=== PATIENT | female | born 1935 | race Caucasian/White ===

== ENCOUNTER 2021-01-20 20:01 | Observation (INO) | payer MEDICARE, OTHER ==
[~2021-01-20] VITALS: Ht 154.9 cm; Wt 58.0 kg
[~2021-01-20 20:01] MED LIST: CALTRATE 600 +1 EAC1 PO; CHILDREN'S ASPI81 M1 PO; COZAAR25 MG PO; D3 DOTS2000 UNIT PO; DICYCLOMINE HCL20 MG PO; HYDROCODON-ACE1 EA10 PO; LEVOXYL88 MCG PO; MULTI-VITAMIN-1 EACH PO; OMEPRAZOLE20 MG; PEPCID20 MG PO; TYLENOL EXTRA500 MG PO
[2021-01-20] MEDS ORDERED: HYDROCHLOROTHIA25 MG PO (20:23)
[2021-01-20] MEDS ORDERED: ALENDRONATE SOD70 MG PO (20:25)
[2021-01-20] MEDS ORDERED: LOSARTAN POTASS50 MG PO (20:25)
--- NOTE | 2021-01-20 23:45 | NUR ---
pt ARRIVED TO THE FLOOR VIA ED STRETCHER, SBA TO HOSPITAL BED. VSS, TELE #[address], pt DENIES DIZZINESS. IV FLUIDS HUNG AND INFUSING PER MD ORDERS, SITE WNL. DAUGHTER IN ROOM. pt ORIENTED TO ROOM, CALL LIGHT IN REACH. DENIES NEED TO VOID, REPORTS SHE RECENTLY VOIDED IN ED. ASSESSMENT COMPLETE, A/OX4. NO FURTHER NEEDS AT THIS TIME, CALL LIGHT IN REACH.
--- NOTE | 2021-01-21 00:49 | NUR ---
pt UP SBA TO VOID, HR UP TO 120'S PER JULISA TRINH, RETURNED BELOW 100 AFTER APPROX 3 MINUTES. NOW SUSTAINING IN 90'S, NSR. pt DENIES SOB OR CHEST PAIN. NO DISTRESS NOTED. pt RESTING IN BED, DAUGHTER JAMAR ALSO IN ROOM. CALL LIGHT IN REACH.
--- NOTE | 2021-01-21 03:00 | NUR ---
pt RESTING IN BED WITH EYES CLOSED, RR EVEN AND UNLABORED. NO DISTRESS NOTED, TELE#[address] NSR, HR WNL. CALL LIGHT IN REACH.
--- NOTE | 2021-01-21 04:15 | NUR ---
pt UP TO VOID SBA TO BATHROOM, SINUS TACH WITH HR UP TO 115 WITH MOVEMENT, RETURNED TO BASELINE ONCE pt WAS BACK IN BED. NSR NOW, HR 90'S. ASSESSMENT COMPLETE, VSS. NO NEW CHANGES OR CONCERNS. CALL LIGHT IN REACH.
--- NOTE | 2021-01-21 05:22 | NUR ---
scheduled thyroid med given, see emar. no further needs. call light in reach.
--- NOTE | 2021-01-21 07:05 | NUR ---
Report received from Claudia EGAN. Pt ambulates to BR with SBA, steady gait. Breakfast ordered. IVF infusing WNL. Pt has no further needs.
--- NOTE | 2021-01-21 07:48 | NUR ---
Call light answered, new bag IVF hung. Assessment complete, pt alert and oriented with no needs. Pt eating breakfast sitting up in bed. Call light in reach.
--- NOTE | 2021-01-21 09:52 | NUR ---
IVF infusing WNL. Discussed discharge order with pt who is agreeable. No other needs at this time.
--- NOTE | 2021-01-21 11:35 | NUR ---
PT DISCHARGED VIA WHEELCHAIR WITH BELONGINGS IN HAND. VITALS STABLE. DISCHARGE TEACHING DONE, PT VERBALIZES UNDERSTANDING AND HAS NO CONCERNS. SALINE LOCK REMOVED, CATH INTACT WNL. PT DAUGHTER PRESENT TO DRIVE PT HOME.
--- NOTE | 2021-01-21 13:01 | EKG ---
[facility] [address] [place], [place] [address] Signed Normal sinus rhythm Normal ECG No previous ECGs available Confirmed by MARVA JOSEPH DO ([id number]) on 01/21/2021 1:01:24 PM Electronically Signed By: MARVA JOSEPH DO 01/21/21 1301 PATIENT NAME: OSIRIS DAS PRINCESS Electrocardiogram DATE OF : 33 PHYSICIAN: MARVA JOSEPH DO REPORT #: [id number] REPORT IS CONFIDENTIAL AND NOT TO BE RELEASED WITHOUT AUTHORIZATION
== END 2021-01-21 11:30 | disposition home or self-care (01) ==
LOC: ED 20:01 → MS 20:03
PROVIDERS: ADMIT Student in an Organized Health Care Education/Training Program; ATTEND Student in an Organized Health Care Education/Training Program
DX: E87.1 Hypo-osmolality and hyponatremia (principal); I95.89 Other hypotension; I10 Essential (primary) hypertension; E03.9 Hypothyroidism, unspecified; Z20.822 Contact with and (suspected) exposure to COVID-19
CPT/HCPCS: 36415; 71045; 80048; 80053; 81001; 83735; 84484; 85025; 87040; 93005; 93010; 96374; 99285-25; C9803; G0378; J3475; J7121; U0003

== ENCOUNTER 2021-02-16 10:01 | Emergency (ER) | payer MEDICARE, OTHER ==
[~2021-02-16] VITALS: Ht 154.9 cm; Wt 58.0 kg
[~2021-02-16 10:01] MED LIST changes: +ALENDRONATE SOD70 MG PO; +HYDROCHLOROTHIA25 MG PO; +LOSARTAN POTASS50 MG PO
--- OUTSIDE RECORDS SUMMARY | 2021-02-16 10:10 | XMS ---
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 Pearl has no Care Guidelines for this patient. [place] VISIT COUNT (12 MO.) [address] [facility] [place] [facility] TOTAL 2 NOTE: Visits indicate total known visits. [place]/[facility] VISIT TRACKING (12 MO.) 02/16/2021 10:[address] [facility] [place] TYPE: Emergency COMPLAINT: - WEAKNESS, DIZZINESS 01/20/2021 20:02 [facility] [place] TYPE: Emergency COMPLAINT: - LOC, LOW BLOOD PRESSURE INPATIENT VISIT TRACKING (12 MO.) 01/20/2021 20:03 [facility] [place] TYPE: Observation COMPLAINT: - TRANSIENT HYPOTENSION AND HYPONATREMIA DIAGNOSES: - Other hypotension - Hypo-osmolality and hyponatremia - Hypothyroidism, unspecified - Essential (primary) hypertension [email or web address]
[2021-02-16] MEDS ORDERED: HYDROCHLOROTHIA25 MG PO (10:26)
--- NOTE | 2021-02-16 14:08 | EKG ---
[facility] [address] [place], [place] [address] Signed Normal sinus rhythm Normal ECG When compared with ECG of 20-JAN-2021 21:07, No significant change was found Confirmed by MARVA JOSEPH DO ([id number]) on 02/16/2021 2:07:44 PM Electronically Signed By: MARVA JOSEPH DO 02/16/21 1408 PATIENT NAME: KANDYKenzieOSIRIS PRINCESS Electrocardiogram DATE OF : 33 PHYSICIAN: MARVA JOSEPH DO REPORT #: [id number] REPORT IS CONFIDENTIAL AND NOT TO BE RELEASED WITHOUT AUTHORIZATION
== END 2021-02-16 16:09 | disposition home or self-care (01) ==
LOC: ED 10:01
DX: R42 Dizziness and giddiness (principal); I10 Essential (primary) hypertension; E03.9 Hypothyroidism, unspecified; Z88.5 Allergy status to narcotic agent; Z88.7 Allergy status to serum and vaccine; Z79.899 Other long term (current) drug therapy
CPT/HCPCS: 70450; 80053; 81001; 84484; 85025; 93005; 93010; 99284-25; J7040

== ENCOUNTER 2023-12-22 22:59 | Emergency (ER) | payer MEDICARE, OTHER ==
[~2023-12-22] VITALS: Ht 154.9 cm; Wt 59.8 kg
[2023-12-22 23:11] LABS: BASOPHILS 0.5 % (0-2); EOSINOPHILS 2.3 % (0-6); HEMATOCRIT 33.1 % (35.0-50.0); LYMPHOCYTES 34.1 % (24-44); MCH 30.7 (27-36); MCHC 33.2 g/dl (30-36); MCV 92.6 fl (81-99); NEUTROPHILS 51.1 % (39-80); PLATELET COUNT 282 K/uL (140-440); RBC 3.57 M/ul (4.3-5.7); RDW 13.5 (10.5-15.0)
[2023-12-22] MEDS ORDERED: fentaNYL citrate 100 MCG/2 ML VIAL IV PRN (23:15)
[2023-12-22 23:22] LABS: INR 0.96 (0.80-1.30)
[2023-12-22 23:26] LABS: ALBUMIN 2.8 g/dL (3.4-5.0); ALBUMIN/GLOBULIN RATIO 0.76 (1.1-2.4); BILIRUBIN, TOTAL 0.2 ng/dL (0.2-1.0); BUN/CREATININE RATIO 31.89 (6.0-28.6); CALCIUM 8.8 mg/dL (8.5-10.1); CREATININE, SERUM 1.16 mg/dL (0.55-1.02); PROTEIN, TOTAL 6.5 g/dL (6.4-8.2)
[2023-12-23 00:43] VITALS: BP 138/54
--- NOTE | 2023-12-23 22:40 | EKG ---
[facility] [address] [facility] [place] [address] Signed Sinus rhythm with premature supraventricular complexes Cannot rule out Anterior infarct , age undetermined Abnormal ECG When compared with ECG of 16-FEB-2021 10:33, premature supraventricular complexes are now present Confirmed by Nas Padgett MD () on 12/23/2023 10:40:34 PM Electronically Signed By: NAS PADGETT MD 12/23/23 2240 PATIENT NAME: OSIRIS DAS PRINCESS Electrocardiogram DATE OF : 33 PHYSICIAN: NAS PADGETT MD REPORT #: [id number] REPORT IS CONFIDENTIAL AND NOT TO BE RELEASED WITHOUT AUTHORIZATION
== END 2023-12-23 00:44 | disposition short-term general hospital (02) ==
LOC: ED 22:59
PROVIDERS: Family Medicine
DX: S72.141A Displaced intertrochanteric fracture of right femur, initial encounter for closed fracture (principal); W22.8XXA Striking against or struck by other objects, initial encounter; I10 Essential (primary) hypertension; E03.9 Hypothyroidism, unspecified; Z79.899 Other long term (current) drug therapy; Z88.5 Allergy status to narcotic agent
CPT/HCPCS: 36415; 73502; 80053; 85025; 85610; 93005; 93010; 96374; 99284-25; J3010

== ENCOUNTER 2024-02-20 08:51 | Inpatient (IN) | payer MEDICARE, OTHER ==
[~2024-02-20] VITALS: Ht 154.9 cm; Wt 56.0 kg
[2024-02-20] VITALS (7 sets, daily range): BP systolic 106–120; BP diastolic 39–50
[2024-02-20] MEDS ORDERED: ELIQUIS2.5 MG PO (09:20)
[2024-02-20] MEDS ORDERED: AMIODARONE HCL100 MG PO (09:21)
[2024-02-20] MEDS ORDERED: PREGABALIN25 MG PO (09:21)
[2024-02-20] MEDS ORDERED: POTASSIUM CHLO20 ME2 PO (09:21)
[2024-02-20] MEDS ORDERED: TORSEMIDE10 MG PO (09:21)
[2024-02-20] MEDS ORDERED: CYCLOBENZAPRINE5 MG PO (09:21)
[2024-02-20] MEDS ORDERED: SODIUM CHLORIDE 0.9% 1,000 ML IV PRN (09:30)
[2024-02-20 10:43] LABS: BASOPHILS 0.4 % (0-2); EOSINOPHILS 0.1 % (0-6); HEMATOCRIT 13.4 % (35.0-50.0); LYMPHOCYTES 6.5 % (24-44); MCHC 31.9 g/dl (30-36); MCV 106.6 fl (81-99); MONOCYTES 9.5 % (0-12); NEUTROPHILS 83.5 % (39-80); PLATELET COUNT 427 K/uL (140-440); RBC 1.26 M/ul (4.3-5.7); RDW 23.7 (10.5-15.0)
[2024-02-20 10:53] LABS: PARTIAL THROMBOPLASTIN TIME 25.4 Sec (22.9-41.3)
[2024-02-20 10:54] LABS: HEMOGLOBIN 4.3 g/dL (12.0-18.0); INR 1.08 (0.80-1.30); PROTIME 13.3 Sec (11.2-14.2)
[2024-02-20 11:03] LABS: ALBUMIN 2.2 g/dL (3.4-5.0); ALBUMIN/GLOBULIN RATIO 0.76 (1.1-2.4); BILIRUBIN, TOTAL 0.2 ng/dL (0.2-1.0); BUN/CREATININE RATIO 39.47 (6.0-28.6); CALCIUM 7.7 mg/dL (8.5-10.1); CREATININE, SERUM 1.52 mg/dL (0.55-1.02); PROTEIN, TOTAL 5.1 g/dL (6.4-8.2)
[2024-02-20 11:18] LABS: ABO A; ANTIBODY SCREEN NEGATIVE; RH POSITIVE
[2024-02-20 12:06] LABS: IS CROSSMATCH COMPATIBLE
[2024-02-20] MEDS ORDERED: PROCHLORPERAZINE EDISYLATE 10 MG/2 ML VIAL IV PRN (13:00)
[2024-02-20] MEDS ORDERED: ACETAMINOPHEN 325 MG TAB PO PRN (13:00)
[2024-02-20] MEDS ORDERED: ondansetron HCL 4 MG/2 ML VIAL IV PRN (13:00)
[2024-02-20] MEDS ORDERED: FEROSUL325 MG PO (15:11)
[2024-02-20] MEDS ORDERED: DULOXETINE HCL30 MG PO (15:12)
[2024-02-20] MEDS ORDERED: IRBESARTAN150 MG PO (15:12)
[2024-02-20] MEDS ORDERED: AMLODIPINE BESYL5 MG PO (15:13)
[2024-02-20] MEDS ORDERED: LEVOTHYROXINE100 MCG PO (15:13)
[2024-02-20 16:36] LABS: IS CROSSMATCH COMPATIBLE
[2024-02-20] MEDS ORDERED: MIRALAX119 GM PO (17:06)
[2024-02-20] MEDS ORDERED: OCUVITE LUTEIN1 EAC1 PO (17:06)
[2024-02-20] MEDS ORDERED: SENNA8.6 MG PO (17:07)
--- NOTE | 2024-02-20 17:08 | NUR ---
MED REC COMPLETE
--- NOTE | 2024-02-20 17:13 | NUR ---
Pt arrived to the room at 1326 hours, transferred here from ED4 by this RN after receiving report from JULISA Linda at 1309 hours. Pt's personal belongings in ED4 were gathered by this RN and placed in a green [facility] patient belongings bag labeled with her patient sticker. Pt transferred to room 122 via stretcher, sheet transferred by 3 staff from stretcher to bed. One unit of blood was infusing upon transfer to med/surg. This completed during admission assessment and Post infusion VS obtained. Two RN Skin assessment performed by this RN and Dyana Cronin RN while pt up to [facility] using FWW and 2PA. Pt c/o lightheadedness upon standing that cleared up, but she also c/o muscle spasms in her back, which caused her to flinch as though she was losing her balance. Pt voided in the commode. Katelynn noted to the coccyx area that the pt states had been placed this last Thursday. This was removed. Noted a reddened, non-blanchable area on both sides of the superior gluteal cleft. The reddened area on the left side had a small "barry" in the skin, not bleeding, but more red than the surrounding skin, almost like a small tear. Below these reddened areas is another quarter sized reddened area on the right side, non-blanchable. Waffle overlay placed on the pt's mattress before she returned to bed. SCD's placed on bilateral lower extremities, pt has 2+ pitting edema to BLE, right foot greater than left. She states since she had hip surgery, this has gotten worse and has been harder to get off. Pt's daughter has been in with her in the room. Pt reports poor appetite. Pt also reports that she had been placed on eliquis r/t a diagnosis of AFIB in [place] 5 weeks ago but then was told to stop taking it. She states she has not been taking it but Dr. Carbajal sent in a new prescription for it recently that she has yet to pickle pumper. Pt states that she normally gets around at home using her walker, and that she sleeps in a recliner so it's easier to get up and down. She advises that she has severely increased pain in her lower back when moving from a supine to sitting position and sitting to standing position as well as all in reverse. Pt states she has had a poor appetite as of late. Pt's daughter plans to have her home medications brought in for the pharmacist to review. Pt was oriented to the room and the use of the call light.
--- NOTE | 2024-02-20 19:48 | NUR ---
RECEIVED REPORT FROM DAY SHIFT RN. PATIENT IS RESTING IN BED. BLOOD TRANSFUSION COMPLETED. PATIENTS VITALS TAKEN AND RECORDED. PATIENT DENIES ANY S/SX OF TRANSFUSION REACTION. PATIENT DENIES ANY FURTHER NEEDS. CALL LIGHT IN REACH. DAUGHTER AT BEDSIDE. UPDATE PATIENT AND PATIENTS DAUGHTER ON PLAN OF CARE.
--- NOTE | 2024-02-20 20:41 | NUR ---
PATIENTS 3RD UNIT PRBC STARTED AT APPROX 2014. PATIENT IS RESTING IN BED AND VISITING WITH DAUGHTER. PATIENTS VITALS TAKEN AT APPROX 2029. PATIENT DENIES ANY S/SX OF BLOOD TRANSFUISON REACTION. PATIENT ASSESMENT COMPLETED. PATIENT DENIES ANY PAIN. PATIENT REPOSITIONED IN BED. PATIENT HAS SCDS IN USE. PATIENT PROVIDED WARM BLANKET AND FRESH ICE WATER. DISCUSSED PLAN OF CARE WITH DAUGHTER AND PATIENT AND ALL QUESTIONS ANSWERED. PATIENT DENIES ANY FURTHER NEEDS. DAUGHTER HAS LEFT FOR THE EVENING AND TOOK PATIENTS HEARING AIDS. CALL LIGHT IN REACH. BLOOD TRANSFUSING PER ORDER.
--- NOTE | 2024-02-20 22:00 | NUR ---
PATIENT IS RESTING IN BED WITH EYES CLOSED, RR 15. CALL LIGHT IN REACH. BLOOD INFUSING PER ORDER.
--- NOTE | 2024-02-20 23:30 | NUR ---
3RD UNIT PRBC COMPLETED @ APPROX 2312. PATIENTS VITALS TAKEN AND RECORDED. PATIENT DENIES ANY S/SX OF TRANSFUSION REACTION. PATIENT DENIES ANY NEEDS. CALL LIGHT IN REACH.
--- NOTE | 2024-02-20 23:57 | NUR ---
PATIENT ASSISTED TO THE BSC A 2PA W/FWW. PATIENT ABLE TO VOID. PATIENT IS BACK IN BED RESTING. PATIENT POSITIONED IN HER RIGHT SIDE. PATIENTS SCDS IN USE. NO FURTHER NEEDS NOTED. CALL LIGHT IN REACH.
[2024-02-21] VITALS (7 sets, daily range): BP systolic 103–138; BP diastolic 40–54
--- NOTE | 2024-02-21 00:08 | NUR ---
PATIENT IS RESTING IN BED ON RIGHT SIDE WITH EYES CLOSED, RR 16. CALL LIGHT IN REACH.
[2024-02-21 02:08] LABS: EOSINOPHILS 0.4 % (0-6); HEMOGLOBIN 9.6 g/dL (12.0-18.0)
[2024-02-21 02:11] LABS: BASOPHILS 0.6 % (0-2); HEMATOCRIT 28.8 % (35.0-50.0); LYMPHOCYTES 10.7 % (24-44); MCH 30.9 (27-36); MCHC 33.3 g/dl (30-36); MCV 92.7 fl (81-99); MONOCYTES 11.2 % (0-12); NEUTROPHILS 77.1 % (39-80); PLATELET COUNT 296 K/uL (140-440); RBC 3.11 M/ul (4.3-5.7); RDW 17.7 (10.5-15.0)
--- NOTE | 2024-02-21 02:14 | NUR ---
PATIENTS LABS DRAWN PER MD REQUEST. PATIENTS LAB DRAWN AND SENT TO LAB. PATIENTS VITALS TAKEN AND RECORDED. INTAKE AND OUTPUT RECORDED. PATIENT HAD REQUESTED PUREWICK BE REMOVED EARLIER. PATIENT REQUESTED PUREWICL BE REPLACED. PUREWICK IN PLACE. PATIENT DENIES ANY FURTEHR NEEDS. CALL LIGHT IN REACH.
[2024-02-21 03:04] LABS: ALBUMIN 1.6 g/dL (3.4-5.0); ALBUMIN/GLOBULIN RATIO 0.59 (1.1-2.4); ANION GAP 10.5 (7-21); BILIRUBIN, TOTAL 0.5 ng/dL (0.2-1.0); BUN/CREATININE RATIO 35.64 (6.0-28.6); CALCIUM 7.1 mg/dL (8.5-10.1); CREATININE, SERUM 1.01 mg/dL (0.55-1.02); MAGNESIUM 1.9 mg/dL (1.8-2.4); PHOSPHORUS, INORGANIC 2.5 mg/dL (2.5-4.9); POTASSIUM 3.5 mmol/L (3.5-5.1); PROTEIN, TOTAL 4.3 g/dL (6.4-8.2)
--- NOTE | 2024-02-21 04:12 | NUR ---
PATIENT IS RESTING IN BED WITH EYES CLOSED, RR 16. CALL LIGHT IN REACH.
--- NOTE | 2024-02-21 06:31 | NUR ---
PATIENT ASSISTED TO [facility] A 2PA W/FWW. PATIENT ABLE TO VOID. PATIENT IS NOW IN RECLINER RESTING. PATIENT REPORTS 5/10 BACK PAIN, PRN PAIN MEDICATION PER ORDER. PATIENTS VITALS TAKEN AND RECORDED. INTAKE AND OUTPUT RECORDED. PATIENT DENIES ANY FURTHER NEEDS. CALL LIGHT IN REACH.
[2024-02-21 07:20] LABS: ABO A; RH POSITIVE
--- NOTE | 2024-02-21 09:04 | NUR ---
PT SITTING UP IN CHAIR, STATES HAVING PAIN IN BACK, PAIN CHRONIC FROM PREVIOUS INJURY. NEXT PAIN MEDICATION AVAILABLE AFTER 1100. DISCUSSED I WOULD SPEAK TO DR PADGETT REGARDING PAIN, PT VERBALIZED AGREEMENT. PT DENIES FURTHER NEEDS AT THIS TIME. CALL LIGHT IN REACH AND DAUGHTER IN ROOM.
[2024-02-21] MEDS ORDERED: PHARMACY RENAL DOSE ADJUSTMENT 1 DOSE MISC PO SCH (12:00)
[2024-02-21] MEDS ORDERED: OXYCODONE HCL5 MG PO (12:14)
--- NOTE | 2024-02-21 12:43 | NUR ---
PT AMBULATED STANDBY ASSIST WITH FWW TO THE BATHROOM AND BACK TO RECLINER. PT HAD FORMED, BROWN STOOL. PRINTED PRESCRIPTION GIVEN TO DAUGHTER TO BRING TO [facility]. PT TO FINISH LUNCH, THEN WILL GO OVER DISCHARGE INSTRUCTIONS. PT DENIES FURTHER NEEDS AT THIS TIME. CALL LIGHT IN REACH AND FAMILY AT BEDSIDE.
[2024-02-21 13:20] LABS: IRON BINDING CAPACITY TOTAL 253 ug/dL (240-450); IRON,SERUM OR PLASMA 36 ug/dL (28-170); TRANSFERRIN SATURATION 14 %sat (20-50)
== END 2024-02-21 13:40 | disposition home or self-care (01) | DRG 812 ==
LOC: ED 08:51 → MS 08:52
PROVIDERS: Emergency Medicine; ADMIT Family Medicine; ATTEND Family Medicine
PROC: 30233N1 Transfusion of Nonautologous Red Blood Cells into Peripheral Vein, Percutaneous Approach (ICD-10-PCS; principal; 2024-02-20)
DX: D50.9 Iron deficiency anemia, unspecified (principal); N17.9 Acute kidney failure, unspecified; D63.8 Anemia in other chronic diseases classified elsewhere; I48.91 Unspecified atrial fibrillation; Z66 Do not resuscitate; Z88.7 Allergy status to serum and vaccine; Z88.5 Allergy status to narcotic agent; Z79.01 Long term (current) use of anticoagulants; Z79.83 Long term (current) use of bisphosphonates; Z79.890 Hormone replacement therapy
CPT/HCPCS: 36415; 36430; 80053; 83550; 83615; 83735; 84100; 84484; 85025; 85045; 85060; 85610; 85730; 86850; 86900; 86901; 86922; 97161; 99285-25; A9270; J7030; P9016

== ENCOUNTER 2024-08-21 10:26 | Inpatient (IN) | payer MEDICARE, OTHER ==
[~2024-08-21] VITALS: Ht 154.9 cm; Wt 53.1 kg
[~2024-08-21 10:26] MED LIST changes: +AMIODARONE HCL100 MG PO; +AMLODIPINE BESYL5 MG PO; +CYCLOBENZAPRINE5 MG PO; +CYMBALTA20 MG PO; +ELIQUIS2.5 MG PO; +FEROSUL325 MG PO; +IRBESARTAN150 MG PO; +LEVOTHYROXINE100 MCG PO; +MIRALAX119 GM PO; +OCUVITE LUTEIN1 EAC1 PO; +OXYCODONE HCL5 MG PO; +POTASSIUM CHLO20 ME2 PO; +PREGABALIN25 MG PO; +SENNA8.6 MG PO; +TORSEMIDE10 MG PO
[2024-08-21 10:50] LABS: BASOPHILS 0.5 % (0-2); HEMATOCRIT 24.6 % (35.0-50.0); HEMOGLOBIN 7.9 g/dL (12.0-18.0); LYMPHOCYTES 11.8 % (24-44); MCH 29.8 (27-36); MCHC 32.2 g/dl (30-36); MCV 92.5 fl (81-99); MONOCYTES 8.7 % (0-12); PLATELET COUNT 457 K/uL (140-440); RBC 2.66 M/ul (4.3-5.7); RDW 16.2 (10.5-15.0)
[2024-08-21 11:03] LABS: ALBUMIN 2.5 g/dL (3.4-5.0); ALBUMIN/GLOBULIN RATIO 0.66 (1.1-2.4); ALCOHOL, MEDICAL <3 ng/dL (<3); ALKALINE PHOSPHATASE 174 U/L (46-116); ALT (SGPT) 12 U/L (14-59); ANION GAP 12.9 (7-21); AST (SGOT) 13 U/L (15-37); BILIRUBIN, TOTAL 0.2 ng/dL (0.2-1.0); BUN/CREATININE RATIO 55.44 (6.0-28.6); CALCIUM 9.5 mg/dL (8.5-10.1); CARBON DIOXIDE 27 mmol/L (21-32); CHLORIDE 103 mmol/L (98-107); CREATININE, SERUM 1.01 mg/dL (0.55-1.02); GLOMERULAR FILTRATION RATE,EST 53 mL/min (>60); POTASSIUM 3.9 mmol/L (3.5-5.1); PROTEIN, TOTAL 6.3 g/dL (6.4-8.2); UREA NITROGEN 56 mg/dL (7-18)
[2024-08-21 11:22] LABS: BILIRUBIN, URINE NEGATIVE (negative); BLOOD/HGB, URINE NEGATIVE (Negative); KETONE, URINE TRACE (Negative); LEUK ESTERASE, URINE NEGATIVE (negative); NITRITE, URINE NEGATIVE (negative); PH, URINE 5.5 (5-7)
[2024-08-21 11:37] LABS: AMPHETAMINES, URINE NEGATIVE (NEGATIVE); BARBITURATES, URINE NEGATIVE (NEGATIVE); BENZODIAZEPINE, URINE NEGATIVE (NEGATIVE); BUPRENORPHINE, URINE NEGATIVE (NEGATIVE); CANNABINOID, URINE NEGATIVE (NEGATIVE); COCAINE, URINE NEGATIVE (NEGATIVE); ECSTASY, URINE NEGATIVE (NEGATIVE); FENTANYL, URINE NEGATIVE (NEGATIVE); METHADONE, URINE NEGATIVE (NEGATIVE); OPIATES, URINE NEGATIVE (NEGATIVE); OXYCODONE, URINE NEGATIVE (NEGATIVE); PHENCYCLIDINE, URINE NEGATIVE (NEGATIVE)
[2024-08-21] MEDS ORDERED: CALCITONIN-SAL3.7 ML NAS (12:20)
[2024-08-21] MEDS ORDERED: FUROSEMIDE20 MG PO (12:20)
[2024-08-21] MEDS ORDERED: PANTOPRAZOLE SO40 MG PO (12:21)
[2024-08-21] MEDS ORDERED: CEFTRIAXONE/SODIUM CHLORIDE 1 GM/100 ML PIGGYBACK IV ONE (12:30)
[2024-08-21] MEDS ORDERED: SODIUM CHLORIDE 0.9% 1,000 ML IV ONE (12:30)
[2024-08-21 13:00] LABS: TSH, 3RD GENERATION 0.442 uIU/mL (0.358-3.740)
[2024-08-21] MEDS ORDERED: LACTATED RINGER'S 1,000 ML IV SCH (14:15)
[2024-08-21] MEDS ORDERED: ondansetron HCL 4 MG/2 ML VIAL IV PRN (14:15)
[2024-08-21] MEDS ORDERED: ACETAMINOPHEN 325 MG TAB PO PRN (14:15)
[2024-08-21] MEDS ORDERED: PANTOPRAZOLE SODIUM 40 MG/10 ML VIAL IV SCH (14:15)
[2024-08-21 14:46] VITALS: BP 135/73
[2024-08-21 15:05] LABS: ABO A; RH POSITIVE
[2024-08-21 15:06] LABS: ANTIBODY SCREEN NEGATIVE; IS CROSSMATCH COMPATIBLE
--- NOTE | 2024-08-21 15:30 | NUR ---
PATIENT IS IN THE ROOM WITH HER DAUGHTER SITTING ON THE COUCH AT BEDSIDE. ADMISSION COMPLETE. ASSESSMENT COMPLETE AND DOCUMENTED IN THE CHART. PATIENT IS ALERT AND ORIENTED TO SELF ONLY. PATIENT IS FORGETFUL AND CONFUSED. PATIENT STATES THIS IS NOT HER NORMAL. MURMUR HEARD ON CARDIAC AUSCULTATION. 1+ PITTING EDEMA NOTED IN BLE. RADIAL PULSES ARE STRONG BILATERALLY. PATIENT IS ON ROOM AIR. CLEAR LUNGS IN THE RIGHT LUNG NORTON WELL THE SILVINA. L LOWER LUNG FIELD IS DIMINISHED. PATIENT IS ON A CLEAR LIQUID DIET. BOWEL TONES ARE ACTIVE IN ALL FOUR QUADRANTS. LAST BM WAS 08/18/24. PATIENT WITH EPISODES OF INCONTINENCE. PUREWICK IN PLACE. COCCYX WITH BLANCHABLE REDNESS AND SCATTERED SCABS. SCATTERED BRUISING NOTED WELL. PATIENT WITH NO COMPLAINTS OF PAIN. SENSATION INTACT WITH NO NUMBNESS OR TINGLING. IV IN THE RIGHT FOREARM FLUSHED WITH 10 ML NORMAL SALINE AND HAS MAINTENANCE FLUIDS INFUSING AT THIS TIME. IV DRESSING IS CLEAN, DRY, AND INTACT. PATIENT STATED NO FURTHER NEEDS AT THIS TIME. CALL LIGHT AND PERSONAL BELONGINGS ARE WITHIN REACH.
[2024-08-21] MEDS ORDERED: LABETALOL HCL 20 MG/4 ML VIAL IV PRN (16:00)
--- NOTE | 2024-08-21 16:15 | NUR ---
RN REMAINS AT BEDSIDE FOR FIRST 15 MINUTES OF BLOOD TRANSFUSION. PATIENT IS ALERT AND CALM BUT REMAINS CONFUSED. VITAL SIGNS TAKEN PRIOR. PATIENT DAUGHTER IS NOT IN THE ROOM AT THIS TIME.
--- NOTE | 2024-08-21 16:29 | NUR ---
15 MINUTE VITAL SIGNS COMPLETE. PATIENT IS LYING ON THEIR BACK WITH EYES OPEN AND RESPIRATIONS ARE EVEN AND UNLABORED. PATIENT DAUGTER IS SITTING ON THE COUCH IN THE ROOM AT THIS TIME. PUREWICK IN PLACE. PATIENT GIVEN FRESH CUP OF ICE WATER. PATIENT STATED NO FURTHER NEEDS AT THIS TIME. CALL LIGHT AND PERSONAL BELONGINGS ARE WITHIN REACH.
--- NOTE | 2024-08-21 17:02 | NUR ---
PATIENT IS SITTING UPRIGHT IN BED. PATIENT DAUGHTER IS LEAVING AT THIS TIME. BLOOD INFUSING AT 175 ML/HR. PATIENT STATED NO FURTHER NEEDS AT THIS TIME. CALL LIGHT AND PERSONAL BELONGINGS ARE WITHIN REACH.
--- NOTE | 2024-08-21 17:24 | NUR ---
PATIENT IS SITTING UPRIGHT IN BED AND WATCHING TV. PATIENT REMAINS CONFUSED, RN REORIENTED PATIENT AT THIS TIME. PATIENT RE-EDUCATED ON THE CALL LIGHT AND PRESS THE NURSE BUTTON IF SHED NEEDS ANYTHING. PATIENT EXPRESSED UNDERSTANDING. BLOOD TRANSFUSION RATE INCREASED TO 250 ML/HR. PATIENT IS TOLERATING WELL. PATIENT PUREWICK IN PLACE. PATIENT STATED NO FURTHER NEEDS AT THIS TIME. CALL LIGHT AND PERSONAL BELONGINGS ARE WITHIN REACH.
[2024-08-21 18:34] VITALS: BP 121/53
[2024-08-21 18:36] VITALS: BP 121/53
--- NOTE | 2024-08-21 18:40 | NUR ---
WAFFLE BED HAS BEEN PLACED FOR PATIENT TO HELP WITH SKIN BREAK DOWN. WAFFLE SEAT HAS BEEN ALSO PLACED ON RECLINER. NO REQUEST FROM PATIENT AT THIS TIME. CALL LIGHT HAS BEEN PLACED WITHIN REACH.
[2024-08-21 18:41] VITALS: BP 121/53
--- NOTE | 2024-08-21 18:44 | NUR ---
PATIENT IS LYING IN BED AFTER GETTING A WAFFLE MATTRESS OVERLAY IN PLACE. BLOOD TRANSFUSION COMPLETE. VITAL SIGNS TAKEN. JULISA LOPEZ CLEARED PUMP OF IV INTAKE FLUIDS. RN UNABLE TO TAKE WOUND CARE PICTURES DUE TO PATIENT INABILITY TO CONSENT. PATIENT STATED NO FURTHER NEEDS AT THIS TIME. CALL LIGHT AND PERSONAL BELONGINGS ARE WITHIN REACH.
--- NOTE | 2024-08-21 19:30 | NUR ---
Pt awake, oriented to self only, reoriented, semireceptive. on room air. bed alrm on for safety, IVF and scds in place
[2024-08-21 20:06] VITALS: BP 139/60
[2024-08-21 20:17] VITALS: BP 139/60
--- NOTE | 2024-08-21 20:17 | NUR ---
Pt up to BSC with 2PA, heavy weight and uncoordinated movements noted. required multiple cues. voided and had a large hard formed green dark/silvery bm. area bettween buttocks notd to be red and peeling skin, Allevyn applied as a tx by wound care nurse. Back to bed, Clean attends and pure wick changed, tolerated fair, reassured, all cares explained, alert to self, place and date at thist kari. cooperative. On room air, lungs clear bilat, denies CP, abd alightly firm, dianne. scds in place, 1+ edema to ankles present. elevated. IVF infusing RW. no c/o pain, took small sips of fluid. Bed alrm for fall precautions in place
--- NOTE | 2024-08-21 20:36 | NUR ---
PT NOTED TO HAVE A PAINFUL, RED COCCYX. PT HAS A SLOUGHING SKIN, BLANCHABLE AND A SMALL AREA OF DENUDED SKIN SUPERIOR TO THE RECTUM. APPLY SKIN BARRIER CREAM AND COCCYX ALLEVYN. CHANGE POSITIONS FREQUENTLY AND MONITOR FOR INCREASED SKIN BREAKDOWN. CHANGE DRESSING EVERY 3 DAYS AND PRN.
[2024-08-21] MEDS ORDERED: MELATONIN 3 MG TAB PO PRN (21:00)
--- NOTE | 2024-08-21 22:56 | NUR ---
Charge nurse went to pts room and pt appeared to have word salad unable to make words out. When this RN and CRAFT RECRUITER went in there, pt was more alert and oriented to self, place and situation, able to state she had back pain, unable to state pain level, denies CP or SOB. medicated with Tylenol per back pain and repostitioned to R side. cooperative, on room air, pure wick in place, alrmds in place. Tolerated sips of fluids well. SCD's in place, waffle mattress overlay in place
[2024-08-22] VITALS (8 sets, daily range): BP systolic 122–148; BP diastolic 45–67
--- NOTE | 2024-08-22 01:50 | NUR ---
pT AWAKE, TURNED AND REPOSITIONED, TOLERATED WELL. PURE WICK IN PLACE. NO DRAINAGE AT THIS TIME, ATTENDS DRY. IVF INFUSING. TOOK SIPS OF FLUID. SCDS IN PLACE. ELEVATED. NORMAL SPEECH, AWARE OF SURROUNDINGS, ALL CARES EXPLAINED PRIOR TO. NO C/O PAIN.
--- NOTE | 2024-08-22 03:41 | CONS ---
[facility] [address] [place], [place] [address] Signed DATE OF CONSULTATION: 08/21/2024 CHIEF COMPLAINT: Change in mental status. HISTORY OF PRESENT ILLNESS: Ludy is an 88-year-old female, who had been living with her daughter until a few years ago. Earlier this year, she had fallen and broken her hip and required to be pinned. She is known to have chronic anemia. She has received some blood transfusions both inpatient and outpatient. She has been on iron therapy as well. 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 She seemed to do well with that. She then fell in June of this year and had a cranial fracture with a pneumocephalus. On a repeat CT scan that has resolved. This morning, her daughter had found her down on the floor with pillow. She helped her get back in the chair and Ludy actually ate her breakfast. But her daughter felt that her mental status had changed and wanted to bring her to the emergency room for evaluation. In January of this year, she was in the hospital for the same thing. She got 3 units of packed red blood cells. She had declined colonoscopy at that time. She has also just saw her primary care provider the day before [place]. That notes been reviewed as long as the note from the oncologist and her hvac sheet metal installer as well. In the emergency room, there were some markings in the base of the lung, so they gave her a dose of Rocephin. She is very private and likes to take care of herself and does not accept personal hygiene help from her daughters. The nurses had to cleanup brown stool. She is in the hospital now on the Medical Service and is going to receive 1 unit of packed red blood cells. Her daughter is with her. She keeps herself a limited care. PAST MEDICAL HISTORY: Osteopenia, cranial fracture with pneumocephalus in June 2024, hypertension, hypothyroidism, chronic anemia, paroxysmal atrial fibrillation. She has several thoracic and upper lumbar compression fractures. She has lower extremity edema. She fell earlier this year and has a pelvic fracture. She was treated for Hodgkin lymphoma starting about 2014 with chemo and radiation and did well with that. She is also hard of hearing. PAST SURGICAL HISTORY: Bilateral cataract surgery, cholecystectomy, repair of a prolapsed bladder. She had a right hip pinned in the last few weeks and she may have had a hysterectomy. SOCIAL HISTORY: She does not smoke or drink. She has one daughter named Diana at . She now sees Dr. Carbajal as Dr. Torres is retiring. She prefers the [email or web address]. She [facility] at [facility]. She has a four wheeled walker. Dr. Fragoso is her hvac sheet metal installer and Dr. Fransisco Murcia is her corporate communications manager. She keeps herself, has Electronically Signed By: LISSA LUU MD 08/22/24 0341 PATIENT NAME: LUDY DAS PRINCESS CONSULTATION DATE OF : 33 REPORT #: [id number] PHYSICIAN: LISSA LUU MD PCP: SANDI TORRES MD REPORT IS CONFIDENTIAL AND NOT TO BE RELEASED WITHOUT AUTHORIZATION [facility] [address] [place], [place] [address] Signed limited care. FAMILY HISTORY: None. REVIEW OF SYSTEMS: Her previous chart reviewed in that regard. ALLERGIES: Codeine, tetanus and diphtheria toxoid. MEDICATIONS: Vitamin D, calcium, potassium, pregabalin, iron sulfate, duloxetine, amlodipine, levothyroxine, polyethylene glycol, Senna, Lasix, calcitonin, and Protonix. PHYSICAL EXAMINATION: VITAL SIGNS: Her blood pressure is 124/56, heart rate is 99, respiratory rate 19, temperature is 98.1. She is 98% on room air. She is 5 feet 1 inch tall at 56 kg with a body mass index of 23. GENERAL: Ludy is an 88-year-old elderly female lying supine in her hospital bed. She does not appear to be in any acute distress. She is clearly hard of hearing. She is clearly qmbi-po-erwboqmhrn confused. She is not sure why she is here in the hospital. LUNGS: Clear to auscultation bilaterally. HEART: Tachycardic with a quiet murmur. ABDOMEN: Mildly distended but soft and nontender. LABORATORY DATA: Her white blood cell count is 8.9, hemoglobin 7.9, mean cell volume is 92, platelets 457. BUN 56, creatinine 1.01. Urinalysis negative. Thyroid function tests negative. Alkaline phosphatase a little high at 174. Troponin is negative. Albumin is a little low at 2.5. Alcohol was negative. Ammonia was negative. RADIOGRAPHIC STUDIES: A chest x-ray shows possible old right rib fractures and her compression fractures in the lower thoracic and upper lumbar spine. She has some markings along that left lower lobe of the lung. CT scan of the head shows that the pneumocephalus from June of this year is resolved. No other significant changes other than that from her age. ASSESSMENT AND PLAN: Ludy is an 88-year-old female, who has a long history of chronic anemia requiring iron tablets and intermittent blood transfusions. She has been very consistent declining upper and lower endoscopy including January of this year. She told me today she is not sure why she is in the hospital and she feels bad that her daughter has to be Electronically Signed By: LISSA LUU MD 08/22/24 0341 PATIENT NAME: LUDY DAS CONSULTATION DATE OF : 33 REPORT #: [id number] PHYSICIAN: LISSA LUU MD PCP: SANDI TORRES MD REPORT IS CONFIDENTIAL AND NOT TO BE RELEASED WITHOUT AUTHORIZATION [facility] [address] [place], [place] [address] Signed here with her. She makes herself a limited care. She did not seem particularly interested in upper and lower endoscopy once again. I explained to Ludy and her daughter is certainly reasonable to treat her conservatively with the ongoing Protonix and gave her a unit of blood and see how she does. I am always available if they want to do upper endoscopy. She is quite frail and doing a lower endoscopy would be a bit of a challenge. They have expressed understanding, agreed above plan. Lissa Luu MD ALB/MODL /[id number] cc: MD Jose De Jesus Roberts DO Copies: LISSA LUU MD, ARIAN DO ~ Electronically Signed By: LISSA LUU MD 08/22/24 0341 PATIENT NAME: LUDY DAS PRINCESS CONSULTATION DATE OF : 33 REPORT #: [id number] PHYSICIAN: LISSA LUU MD PCP: SANDI TORRES MD REPORT IS CONFIDENTIAL AND NOT TO BE RELEASED WITHOUT AUTHORIZATION
--- NOTE | 2024-08-22 03:57 | NUR ---
PATIENT HOLLERING OUT HELP. THIS RN INTO PATIENTS ROOM. PATIENT STATED "I THINK I HAVE TO PEE". PATIENT EDUCATED SHE HAS A PUREWICK. PATIENT STATED "OH I CANT DO THAT". PATIENT OFFERED TO GET UP AND GO TO THE BATHROOM. PATIENT STATED "I DONT HAVE TO PEE". PATIENT IS NOTED TO BE ONLY ORIENT TO SELF. PATIENT REPORTIENTED. PATIENT BLADDER SCANNED FOR 345. PATIENT AGAIN DENIES THE NEED TO VOID. NO FURTHER NEEDS. NOTED. CALL LIGHT IN REACH. IV INFUSING PER ORDER. BED ALARM ON FOR SAFETY.
--- NOTE | 2024-08-22 04:33 | NUR ---
eyes closed, no s/sx distress. turned earlier in bed, pure wick in place, on room air. Confused at times, easily redirected. scds in place, legs elevated
[2024-08-22 05:38] LABS: BASOPHILS 1.5 % (0-2); EOSINOPHILS 0.5 % (0-6); HEMATOCRIT 25.3 % (35.0-50.0); HEMOGLOBIN 8.5 g/dL (12.0-18.0); LYMPHOCYTES 27.9 % (24-44); MCH 29.3 (27-36); MCHC 33.4 g/dl (30-36); MCV 87.6 fl (81-99); MONOCYTES 10.9 % (0-12); NEUTROPHILS 59.2 % (39-80); PLATELET COUNT 308 K/uL (140-440); RBC 2.89 M/ul (4.3-5.7); RDW 17.9 (10.5-15.0)
--- NOTE | 2024-08-22 05:40 | NUR ---
pt up to BSC, 2PA multiple verbal cues and reassurance. voided large amounts of strong smelling dark yellow uriine and multiple large hard aria of dark bm. SOB with exertion noted. Back to bed. c/o being dizzy when transferring. Daily stand weight 53.1KG.
[2024-08-22 05:48] LABS: ANION GAP 12.4 (7-21); BUN/CREATININE RATIO 48.05 (6.0-28.6); CALCIUM 8.1 mg/dL (8.5-10.1); CREATININE, SERUM 0.77 mg/dL (0.55-1.02); MAGNESIUM 1.5 mg/dL (1.8-2.4); POTASSIUM 3.4 mmol/L (3.5-5.1)
[2024-08-22] MEDS ORDERED: LEVOTHYROXINE SODIUM 112 MCG TAB PO SCH (07:00)
--- NOTE | 2024-08-22 07:49 | NUR ---
Advised by charge nurse, Yumiko, that a restriction band had been left on the patient's left upper arm, most likely placed there when overnight stocker started an IV in her left forearm around 0647 hours. Band removed, left arm elevated on a pillow. Noted a reddened area around the left upper arm, slight swelling noted, however, it had not occluded the IV as fluids have been running and the IV pump did not alarm an occlusion.
--- NOTE | 2024-08-22 08:18 | NUR ---
UR CLINICAL REVIEW: 2 MN FOR VERSALUS-MEETS INPT CRITERIA FOR UGIB MEDICARE INPT 08/21/24 @ 1416 ORDER MATCHES REG NO AUTH REQUIRED PER MEDICARE GUIDELINES PATIENT WILL RETURN TO SNF AT DC
--- NOTE | 2024-08-22 08:26 | NUR ---
Dr. Spann in with pt and pt's daughter. Moises from [facility] performing an EKG at this time. Pt is alert, oriented, but has a hard time getting all of her thoughts formed in to words. She states she feels like she is back to as normal as possible.
--- NOTE | 2024-08-22 08:48 | NUR ---
IN TO SPEAK WITH PATIENT, CARES BEING PROVIDED. WILL RETURN TO SPEAK WITH PATIENT.
[2024-08-22] MEDS ORDERED: POTASSIUM CHLORIDE 10 MEQ TABCR PO ONE (09:00)
[2024-08-22] MEDS ORDERED: AZITHROMYCIN 250 MG TAB PO SCH (09:00)
[2024-08-22] MEDS ORDERED: MAGNESIUM SULFATE 2 GM/50 ML BAG IV ONE (09:00)
[2024-08-22] MEDS ORDERED: CEFTRIAXONE/SODIUM CHLORIDE 1 GM/100 ML PIGGYBACK IV SCH (09:00)
--- NOTE | 2024-08-22 09:30 | NUR ---
PT and OT in with pt at this time. Pt is weak, reports pain in both legs, tires easily.
--- NOTE | 2024-08-22 09:40 | EKG ---
[facility] [address] [facility] [place] [address] Signed Sinus tachycardia Incomplete right bundle branch block Borderline ECG When compared with ECG of 22-DEC-2023 23:41, premature supraventricular complexes are no longer present Nonspecific T wave abnormality now evident in Inferior leads Confirmed by Farhan Pressley DO ([id number]) on 08/22/2024 9:40:33 AM Electronically Signed By: FARHAN PRESSLEY DO 08/22/24 0940 PATIENT NAME: OSIRIS DAS PRINCESS Electrocardiogram DATE OF : 33 PHYSICIAN: FARHAN PRESSLEY DO REPORT #: [id number] REPORT IS CONFIDENTIAL AND NOT TO BE RELEASED WITHOUT AUTHORIZATION
[2024-08-22] MEDS ORDERED: LIDOCAINE & ANTACID 35 ML BTL PO ONE (10:00)
--- NOTE | 2024-08-22 10:22 | NUR ---
PATIENT SITTING UP IN CHAIR AT THIS TIME. VITALS AND I&O'S DONE AND CHARTED. CALL LIGHT IN REACH. NO FURTHER NEEDS AT THIS TIME.
[2024-08-22] MEDS ORDERED: AMLODIPINE BES2.5 MG PO (10:34)
[2024-08-22] MEDS ORDERED: BACLOFEN5 MG PO (10:36)
[2024-08-22] MEDS ORDERED: PREGABALIN50 MG PO (10:37)
[2024-08-22] MEDS ORDERED: LEVOTHYROXINE112 MCG PO (10:37)
--- NOTE | 2024-08-22 11:27 | NUR ---
Pt was transferred to MRI at 1044 hours, by wheelchair, by Vishnu from Imaging
--- NOTE | 2024-08-22 11:31 | NUR ---
PT BACK FROM MRI - TRANSFERED TO BED VIA SLIDER SHEET. PT WITHOUT DISTRESS. IV FLUID RECONNECTED TO RIGHT WRIST SITE. PURWIK RECONECTED TO SUCTION. BED ALARM ON, CALL LIGHT IN REACH. WARM BLANKET PROVIDED. PRIMARY RN NOTIFIED.
[2024-08-22] MEDS ORDERED: PHARMACY RENAL DOSE ADJUSTMENT 1 DOSE MISC PO SCH (12:00)
--- NOTE | 2024-08-22 12:41 | NUR ---
MED REC COMPLETE
--- NOTE | 2024-08-22 13:35 | NUR ---
ALERT AND ORIENTED IN RECLINER. SOME EXPRESSIVE DYSPHAGIA NOTED, PATIENT BECOMES IMPATIENT WITH HER INABILITY TO FIND WORDS DURING CONVERSATION. SHE LIVES AT [facility]. SHE STATES SOMEONE HELPS HER THROUGHOUT THE DAY. SHE HAS A WALKER AND SHOWER CHAIR. SHE HAS ANOTHER DME PRODUCT BUT IS UNABLE TO FIND THE WORD FOR WHAT IT IS DURING CONVERSATION. SHE STATES SHE DOES NOT DRIVE, HAS SOMEONEPROVIDE TRANSPORTATION FOR HER. FINANCIALLY, NO ISSUES. FOOD IS PROVIDED BY FACILITY. DISCUSSED SNF PLACEMENT FOR PATIENT. DISCUSSED IT WOULD BE SHORT TERM JUST TO ASSIST WITH SAFETY AND STRENGTHENING AND SHE WOULD RETURN TO APARTMENT WHEN SHE MEETS PT/OT GOALS AND FOUND TO BE SAFE FOR RETURN. DENIES SNF. STATES SHE MADE ARRANGEMENTS TO BE IN ASSISTED LIVING AND THAT IS WHERE SHE WANTS TO RETURN. STATES SHE HAS BEEN SET UP WITH HOME HEALTH THROUGH [facility] AND SHE FEELS THAT IS ADEQUATE AT THIS TIME. SHE DOES NOT WANT TO GO TO A SNF. STATES SHE WILL LIKELY NOT CHANGE HER MIND ABOUT THAT. DENIES CM NEEDS AT THIS TIME.
--- NOTE | 2024-08-22 13:41 | NUR ---
CALLED AND SPOKE WITH FLOYD AT [facility]. PATIENT HAS BEEN DISCHARGED SINCE MARCH. THEY ARE ABLE TO ACCEPT HER FOR SERVICES IF REFERRAL IS SENT.
--- NOTE | 2024-08-22 15:53 | NUR ---
Dr. Deleon in with pt at pt's request. Pt wants to be discharged tonight. Pt states she has a wheelchair at home and that "they have been wheeling me down to meals and they help me". Pt's daughter will be here after work and Dr. Deleon advised the pt that the 3 of them can discuss options.
[2024-08-22] MEDS ORDERED: AZITHROMYCIN500 MG PO (17:16)
[2024-08-22] MEDS ORDERED: CEFUROXIME500 MG PO (17:16)
--- NOTE | 2024-08-23 10:00 | NUR ---
REFERRAL FOR HOME HEALTH, INCLUDING FACESHEET, ORDER, H&P, DC SUMMARY AND PT/OT NOTES FAXED TO [facility].
--- NOTE | 2024-08-24 20:29 | EKG ---
[facility] [address] [facility] [place], [place] [address] Signed Normal sinus rhythm Normal ECG When compared with ECG of 21-AUG-2024 11:16, (Unconfirmed) No significant change was found Confirmed by Farhan Pressley DO ([id number]) on 08/24/2024 8:29:22 PM Electronically Signed By: FARHAN PRESSLEY DO 08/24/242028 PATIENT NAME: OSIRIS DAS PRINCESS Electrocardiogram DATE OF : 33 PHYSICIAN: FARHAN PRESSLEY DO REPORT #: [id number] REPORT IS CONFIDENTIAL AND NOT TO BE RELEASED WITHOUT AUTHORIZATION
== END 2024-08-22 19:00 | disposition home or self-care (01) | DRG 377 ==
LOC: ED 10:26 → MS 14:24
PROVIDERS: Emergency Medicine; ADMIT Student in an Organized Health Care Education/Training Program; ATTEND Student in an Organized Health Care Education/Training Program
PROC: 30233N1 Transfusion of Nonautologous Red Blood Cells into Peripheral Vein, Percutaneous Approach (ICD-10-PCS; principal; 2024-08-21)
DX: K92.2 Gastrointestinal hemorrhage, unspecified (principal); J18.9 Pneumonia, unspecified organism; J90 Pleural effusion, not elsewhere classified; D50.9 Iron deficiency anemia, unspecified; I10 Essential (primary) hypertension; E03.9 Hypothyroidism, unspecified; G62.9 Polyneuropathy, unspecified; F32.9 Major depressive disorder, single episode, unspecified; K21.9 Gastro-esophageal reflux disease without esophagitis; R41.82 Altered mental status, unspecified; T42.6X5A Adverse effect of other antiepileptic and sedative-hypnotic drugs, initial encounter; Z79.890 Hormone replacement therapy; Z88.5 Allergy status to narcotic agent; Z88.7 Allergy status to serum and vaccine
CPT/HCPCS: 36415; 51701; 70450; 70551; 71045; 80048; 80053; 80307; 81003; 82140; 83735; 84100; 84439; 84443; 84484; 85025; 86850; 86900; 86901; 86922; 93005; 93010; 97162; 97166; 99285-25; A9270; G0480; J0696; J2470; J3475; J7030; J7121; P9016